=== PATIENT | female | born 1955 | race Caucasian/White ===

== ENCOUNTER 2017-11-02 11:24 | Emergency (ER) | payer OTHER ==
[2017-11-02 11:39] VITALS: BP 123/77; PULSE 66; RESP 20; TEMP 98
[2017-11-02] MEDS ORDERED: PROPARACAINE 0.5% OPHTH DROPS 15 ML BTL ONE (11:50)
[2017-11-02] MEDS ORDERED: DIPH,PERTUS(ACELL)TETVAC-LF 0.5 ML VIAL IM ONE (11:56)
[2017-11-02] MEDS ORDERED: TOBRAMYCIN 0.3% OPHTH DROPS 5 ML BTL RIGHT EYE SCH (12:00)
--- NOTE | 2017-11-02 12:00 | ED ---
General Adult HPI - General Chief complaint: Eye Problems Stated complaint: [facility] - poss chemical exposure to rt eye Time Seen by Provider: 11/02/17 11:35 Source: patient, RN notes reviewed Mode of arrival: ambulatory Limitations: no limitations - History of Present Illness Initial comments: This is a 63-year-old female who presents emergency Department complaining of irritation to the right eye. 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 Patient states it feels like there is a foreign body in the eye but when they rinsed it out and put some lubricant on it it did improve but as lubricant dried the eye started to become irritated again. Patient denies any visual disturbance. Patient denies any headache. Patient does wear glasses so she does not believe anything splashed into her eye. Patient states she was a fan going in the room and that could've blown some dust into her eye. - Related Data Allergies Allergy/AdvReac Type Severity Reaction Status Date / Time Penicillins Allergy Unknown Verified 11/02/17 11:39 Review of Systems ROS Statement: Those systems with pertinent positive or pertinent negative responses have been documented in the HPI. ROS Other: All systems not noted in ROS Statement are negative. Past Medical History Past Medical History: Diabetes Mellitus, Hyperlipidemia, Hypertension Additional Past Medical History / Comment(s): brain anuerysm History of Any Multi-Drug Resistant Organisms: None Reported Past Surgical History: Joint Replacement Additional Past Surgical History / Comment(s): bladder suspension Past Psychological History: No Psychological Hx Reported Smoking Status: Never smoker Past Alcohol Use History: None Reported Past Drug Use History: None Reported General Exam - General Exam Comments Initial Comments: GENERAL Patient is well-developed and well-nourished. Patient is in mild distress. EYES Patient's pupils are equal and round. Extraocular motion is intact. I used a Lynch lamp with fluorescein and noted a superficial abrasion just slightly up at the 4 o'clock position from Center. There is no foreign body noted I inverted the eyelids. No foreign body was noted. SKIN Unremarkable NEURO The patient is alert and oriented 3 PYSCH Patient has normal interpersonal interactions. MUSCULOSKELETAL All 4 extremities have full range of motion Limitations: no limitations Course Vital Signs 11/02/17 11:36 Temperature 98.0 F Pulse Rate 66 Respiratory 20 Rate Blood Pressure 123/77 O2 Sat by Pulse 99 Oximetry Medical Decision Making - Medical Decision Making I gave patient tobramycin and tetanus shot in the emergency department. Disposition Clinical Impression: Corneal abrasion Disposition: HOME SELF-CARE Condition: Good Instructions: Abrasion (ED) Additional Instructions: Patient should follow-up with an art therapy certified supervisor if the pain continues for more than 24 hours. Patient returns as any visual changes or new symptoms Is patient prescribed a controlled substance at d/c from ED?: No Referrals: Sandra Hamilton MD [Primary Care Provider] - 1-2 days Time of Disposition: 12:01
[2017-11-02] MEDS ORDERED: PROPARACAINE 0.5% OPHTH DROPS 15 ML BTL RIGHT EYE STA (12:10)
== END 2017-11-02 12:34 | disposition home or self-care (01) ==
LOC: EC 11:24
DX: S05.01XA Injury of conjunctiva and corneal abrasion without foreign body, right eye, initial encounter (principal); Z23 Encounter for immunization; Z88.0 Allergy status to penicillin; X58.XXXA Exposure to other specified factors, initial encounter; Y93.89 Activity, other specified; Y92.69 Other specified industrial and construction area as the place of occurrence of the external cause; Y99.0 Civilian activity done for income or pay
CPT/HCPCS: 90471; 90715; 99283